=== PATIENT | male | born 1990 | race Caucasian/White ===

== ENCOUNTER 2024-09-10 12:18 | Outpatient (CLI) | payer BC, SELFPAY ==
--- NOTE | 2024-09-10 12:40 | ECG_ITS ---
Test Date: 2024-09-10 12:57:27 Measurements Intervals [place] Rate: 71 P: 36 CA: 145 QRS: 1 QRSD: 110 T: 14 QT: 384 QTc: 418 Interpretive Statements SINUS RHYTHM MODERATE VOLTAGE CRITERIA FOR LVH, CONSIDER NORMAL VARIANT [MEETS CRITERIA IN ONE OF: R(aVL), S(V1), R(V5), R(V5/V6)+S(V1)] WARNING: DATA QUALITY MAY AFFECT INTERPRETATION No previous ECG available for comparison Electronically Signed On 09-11-2024 15:20:46 LEAD SETTER by Shaunna Bowie M.D.
[2024-09-10 13:59] LABS: Anion Gap 4 mmol/L (4-12); Blood Urea Nitrogen 12 mg/dL (9-20); Calcium 9.2 mg/dL (8.4-10.2); Carbon Dioxide 28 mmol/L (22-30); Chloride 106 mmol/L (98-107); Estimated Glomerular Filt Rate > 60; Glucose 103 mg/dL (65-110); Potassium 4.3 mmol/L (3.4-5.0); Sodium 138 mmol/L (137-145)
[2024-09-10 14:15] LABS: Prothrombin Time 13.5 Seconds (11.1-14.7)
[2024-09-10 14:17] LABS: Partial Thromboplastin Time 29.1 Seconds (22.3-36.8)
== END 2024-09-10 12:19 | disposition home or self-care (01) ==
LOC: ANHSURGERY 12:26
PROVIDERS: Anesthesiology; Visit Provider Surgery
DX: Z01.818 Encounter for other preprocedural examination (principal); K42.0 Umbilical hernia with obstruction, without gangrene; E13.21 Other specified diabetes mellitus with diabetic nephropathy
CPT/HCPCS: 36415; 80048; 85610; 85730; 86850; 86900; 86901; 93005

== ENCOUNTER 2024-09-18 02:53 | Day surgery (SDC) | payer BC, SELFPAY ==
[2024-09-06 11:23] VITALS: BMI 42.1
--- NOTE | 2024-09-06 11:24 | PC.NURSE ---
Report to the Outpatient Waiting Room, entrance under the green pavilion located off [facility], at time _0730_ on date _[id number]_. Planned Procedure Time: _0930_.? Time changes happen often and if your time is changed the preop area will call you the afternoon before. - You and your visitor will be asked to self-screen and do not enter if you have any COVID symptoms. Please call surgeon if you need to reschedule. - A mask is optional within the hospital at this time. Patients may have clear liquids (water, carbonated beverages, clear teas, apple juice) until 3 hours prior to surgery with a maximum of 20 ounces. - No food from midnight until time of surgery and no smoking. This includes no chewing gum, candy or mints. Take only the following medications with a SIP of water on the morning of surgery: ___None DO NOT STOP ANY OF YOUR OTHER PRESCRIPTION MEDICATIONS PRIOR TO SURGERY EXCEPT THE FOLLOWING Medications to discontinue per physician ___None___ Please no make-up, nail thai, hairspray, perfume, deodorant, or body powder the day of surgery.? No jewelry (including any body piercings) or valuables the day of surgery, leave them at home.? Please take a shower or bath the night before, or the morning of, surgery with an antibacterial soap.? Wear comfortable, loose fitting clothing.? - Jewelry must be removed prior to entering the operating room.? Rings and piercings that are not removed may be cut off. - The hospital will not accept responsibility for valuables.? - Please leave all valuables, including medications, at home the day of surgery. If you are going home after surgery, a licensed power screwdriver operator must drive you home.? - NO public transportation without another adult if you receive anesthesia. - We recommend that an adult stay with you for 24 hours following discharge. - We also recommend that you do not drive, make important decision, drink alcoholic beverages, or take any drugs that were not prescribed by your health care provider for at least 24 hours after your discharge time. Follow any additional instructions given to you from your surgeon. Telephone instructions given to _Ryan__and asked if any additional questions and then verbalized understanding. Patient advised to call surgeon office or pre surgery nurse liaison [phone] if any additional questions.
[2024-09-18] VITALS (19 sets, daily range): BP systolic 110–159; BP diastolic 58–88; PULSE 70–92; RESP 12–36; TEMP 36.4–36.8; O2SAT 92–98
--- NOTE | 2024-09-18 07:43 | P.PNAN_ITS ---
Anes - Initial Pre Proc Eval Procedure: Operation Date: 09/18/24 09:30 Proposed Procedures p Laparoscopic Incarcerated Umbilical Hernia Repair with Mesh, Davinci Assisted - Dharmesh Woods DO Date/Time: 09/18/24 07:43 Surgeon: Dharmesh Woods DO Pre Op Diagnosis: Incarcerated Umb Hernia (4cm) Patient Data Age: 34 Gender: M Height: 1.83 m Weight: 140.9 kg Allergies Allergy/AdvReac Type Severity Reaction Status Date / Time No Known Allergies Allergy Mild Verified 09/06/24 11:13 Home Medications ?Medication ?Instructions ?Recorded ?Confirmed ?Type amlodipine 10 mg tablet 10 mg PO HS 09/06/24 09/18/24 History atorvastatin 20 mg tablet 20 mg PO QPM 09/06/24 09/18/24 History empagliflozin 10 mg tablet 10 mg PO HS 09/06/24 09/18/24 History (Jardiance) hydrochlorothiazide 12.5 mg capsule 12.5 mg PO HS 09/06/24 09/18/24 History losartan 100 mg tablet 100 mg PO HS 09/06/24 09/18/24 History metformin 1,000 mg tablet 1,000 mg PO HS 09/06/24 09/18/24 History Patient hx anesthesia problems: none Family hx anesthesia problems: none Results Review: All pre-operative results and documents have been reviewed as part of the pre- operative evaluation. [facility] Past Medical History Medical History (Updated 09/18/24 @ 07:44 by Jaden Paerson DO) SRIARM (obstructive sleep apnea) Type 2 diabetes mellitus Hypertension Surgical History Surgical History No pertinent past surgical history Family History Family History Mother Hypertension Social History Social History Smoking packs per day: 1 Smoking cigarettes per day: 20.0 Years smoked: 2 Smoking pack-years: 2.00 Smoking status: Former smoker Tobacco type: cigarettes Smoking end date: 09/06/19 Alcohol intake: current Alcohol use details: social Do You Feel Safe in your Home?: Yes Lack of Transportation: No Lack of Food: Never True Current Housing: I Have Housing Concerned About Future Housing: No Difficulty Paying Gas/Electric Bills: No Difficulty Paying for Meds: No Currently Unemployed: No Education: High School Diploma/GED Difficulty w/ Childcare or Family Care: No Living arrangements: with family Occupation/Education: occupation Additional occupation/education comments: [employer] Spiritual care concerns: No Anes - Eval Final PreProcedure Day of Procedure 09/18/24 07:43 Patient weight: morbidly obese Heart: regular rate and rhythm Lungs: clear to auscultation Airway: Mallampati scale class II Neurological: alert and oriented Last oral intake: >/= 8 hours ASA classification: III Emergent: no Anesthetic plan: proceed Anesthesia type and monitoring: general ETT and standard monitoring Results Review: All pre-operative results and documents have been reviewed as part of the pre- operative evaluation. Informed Consent: The patient's anesthetic plan and its attendant risks and benefits were discussed with the patient/family/POA. Questions were solicited and answers provided to the satisfaction of the patient/family/POA.
[2024-09-18] MEDS: LACTATED RINGERS 1,000 ML 30 ML IV CONT ×2 (08:00→12:14)
[2024-09-18 08:22] LABS: Glucose Point of Care 123 mg/dl (65-105)
[2024-09-18] MEDS: ACETAMINOPHEN 500 MG TABLET 1000 MG PO ×3 (08:30→23:32)
[2024-09-18] MEDS: KETOROLAC 15 MG/ML VIAL (*BKC) IV PUSH ×2 (08:30→14:55)
--- NOTE | 2024-09-18 09:36 | WPDHPUPDATE1 ---
History and Physical Update Update Date/Time: 09/18/24 09:36 History and Physical has been reviewed, including an updated exam of the patient. There are NO changes in the patient's condition. Risks, benefits, and alternatives have been discussed and questions answered. Patient agrees to proceed with procedure.
[2024-09-18] MEDS: ceFAZolin 3 GM/D5W 100 ML 100 ML IVPB (09:58)
[2024-09-18] MEDS: BUPIVACAINE/EPINEPHRINE 0.5% 30 ML VIAL INFILTRATE (10:37)
--- NOTE | 2024-09-18 12:16 | W.PM.PROC2 ---
Procedure Note - Detailed Date of Procedure 09/18/24 Pre-op Diagnosis Incarcerated Umbilical Hernia Post-op Diagnosis Same (4 cm incarcerated umbilical hernia) Procedure Performed Laparoscopic 4 cm incarcerated umbilical hernia repair with mesh, da Radha assisted Surgeon Dharmesh Woods, DO Anesthesia General and Local (0.5% bupivacaine with epinephrine) Indications This is a 34-year-old man who presented with an incarcerated umbilical hernia. He has had the hernia for a couple years and this does occasionally cause some discomfort. He was initially seen about 1 year ago and it was recommended that he lose weight before proceeding with surgery. He lost about 45 lb over the past year and his body mass index is now down below 45. He is starting to have more symptoms with the hernia and would like to proceed. Discussions were made with the patient about treatment options and decision was made to proceed with robotic assisted laparoscopic incarcerated umbilical hernia repair with mesh. Findings Robotic assisted laparoscopic 4 cm incarcerated umbilical hernia repair with mesh was performed. The patient was found to have an umbilical hernia incarcerated with omentum. The omentum was carefully reduced and the hernia defect was then measured. This was measuring about 4 cm wide. A robotic intraperitoneal onlay mesh technique was utilized for repair. The preperitoneal fat and hernia sac was excised to allow for mesh placement and fascial closure. I then chose a Ventralight ST 20 cm x 15 cm mesh to repair the hernia with. The hernia sac was removed and sent to the lab for pathology. Description of Procedure Procedure as well as risks, benefits, and alternatives were discussed with the patient. Written consent was obtained and placed in chart prior to procedure. Patient was brought back to surgical suite. He was placed supine on operating table. Time-out was done to confirm patient and procedure. He was then intubated by the anesthesia department. A bump was placed under his left hip, and the bed was flexed slightly to extend the space between his costal margin and iliac crest. His abdomen was prepped and draped in sterile fashion using chlorhexidine prep. A 5 millimeter incision was made in the left upper quadrant, and a 5 millimeter Optiview trocar was advanced through the abdominal layers under direct visualization. Once inside the abdominal cavity, carbon dioxide insufflation was used to create a pneumoperitoneum. His abdomen was inspected. An 8 millimeter incision was made in the left lower quadrant, and an 8 millimeter robotic trocar was placed under direct visualization. Another 8 millimeter incision was made in the left lateral abdomen, and an 8 millimeter robotic trocar was placed under direct visualization. 0.5% bupivacaine with epinephrine was infiltrated around each port site. The 5 millimeter port was removed, and an 8 mm robotic trocar was placed under direct visualization. The robotic arms were brought up to the patient's bedside and secured to the ports. The camera and instruments were inserted, and I then moved over to the robotic console and took control of the camera and instruments. After careful thorough inspection of the abdominal cavity, I began my dissection at the hernia. The incarcerated omentum was carefully reduced using blunt dissection and scissors with electrocautery. The preperitoneal fat and hernia sac were then excised using scissors with electrocautery. The falciform ligament was taken down for about 5 cm cephalad to allow for clear visualization of the abdominal wall. I then measured the hernia size. The hernia measured 4 cm. The fascia was closed using an 1-Stratafix running suture in a vertical fashion. A Ventralight ST 20 cm x 15 cm mesh was then placed within the abdominal cavity. This was oriented vertically with the mesh centered on the hernia defect. The mesh was then secured at the center and 4 corners using 3-0 Vicryl simple interrupted sutures and circumferentially to the abdominal wall using 2-0 Stratafix running absorbable suture. The repair was inspected, and one final inspection was made around the abdominal cavity. The hernia sac was placed in an Endo-Catch bag and removed through the right upper quadrant port. The fascia had to be dilated to extract this. I then closed this port site fascia using an 0 Vicryl suture passed with a Nakul-Pierre cone. The robotic instruments were then removed, and the robotic arms were disengaged from the trocars. The ports were then removed under direct visualization, the camera was removed, and the pneumoperitoneum was released. The skin of the incisions was then approximated using 4-0 Monocryl subcuticular suture. Exofin glue was then applied on top. The patient was then awakened from anesthesia, extubated, and transferred to recovery. Implants Ventralight ST 20 cm x 15 cm mesh Estimated Blood Loss 40 Pathology Yes (Umbilical hernia sac) Complications No immediate complications Condition Stable Disposition Same day [facility] Billing Surgery - Charge Forward: Surgery Billing
[2024-09-18] MEDS: fentaNYL CITRATE INJ (*CRX) 100 MCG/2 ML VIAL 25 MCG IV PUSH ×8 (13:11→13:25)
[2024-09-18 13:56] LABS: Glucose Point of Care 188 mg/dl (65-105)
[2024-09-18] MEDS: ONDANSETRON INJ 4 MG/2 ML VIAL IV PUSH (14:11)
[2024-09-18] MEDS: HYDROmorphone HCL INJ (*CRX) 1 MG/ML SYR IV PUSH (14:20)
[2024-09-18] MEDS: oxyCODONE HCL (*CRX) 5 MG TAB IR PO ×2 (14:28→21:52)
[2024-09-18] MEDS: diphenhydrAMINE HCl INJ 50 MG/ML VIAL 25 MG IV PUSH (15:26)
[2024-09-18 17:55] LABS: Glucose Point of Care 174 mg/dl (65-105)
[2024-09-18] MEDS: ATORVASTATIN 20 MG TABLET PO (18:50)
[2024-09-18] MEDS: IBUPROFEN 600 MG TABLET PO ×2 (18:50→23:32)
[2024-09-18] MEDS: LACTATED RINGERS 1,000 ML 100 ML IV CONT (18:51)
[2024-09-18 21:16] LABS: Glucose Point of Care 163 mg/dl (65-105)
[2024-09-18] MEDS: metFORMIN HCL 500 MG TABLET 1000 MG PO (21:53)
[2024-09-18] MEDS: LOSARTAN POTASSIUM 100 MG TABLET PO (21:53)
[2024-09-18] MEDS: amLODIPine BESYLATE 10 MG TABLET PO (21:53)
[2024-09-18] MEDS: EMPAGLIFLOZIN 10 MG TABLET PO (21:53)
[2024-09-19 00:45] VITALS: BP 123/80; PULSE 109; RESP 22; TEMP 36.7; O2SAT 94
[2024-09-19] MEDS: ACETAMINOPHEN 500 MG TABLET 1000 MG PO (05:08)
[2024-09-19] MEDS: IBUPROFEN 600 MG TABLET PO (05:08)
[2024-09-19 05:30] VITALS: BP 148/79; PULSE 103; RESP 20; TEMP 37.7; O2SAT 94
[2024-09-19 06:53] LABS: Hematocrit 41.3 % (42.0-52.0); Hemoglobin 14.6 g/dL (14.0-18.0); Mean Corpuscular HGB Conc 35.4 g/dl (32-36); Mean Corpuscular Hemoglobin 29.4 pg (26-34); Mean Corpuscular Volume 83.3 fl (80-100); Mean Platelet Volume 9.2 fl (7.4-10.4); Platelet Count Result 376 k/mm3 (150-375); Red Blood Count 4.96 M/mm3 (4.6-6.20); Red Cell Distribution Width 13.3 % (11.5-14.5); White Blood Count 13.4 K/mm3 (4.5-10.0)
[2024-09-19 07:05] LABS: Anion Gap 4 mmol/L (4-12); Blood Urea Nitrogen 15 mg/dL (9-20); Calcium 9.6 mg/dL (8.4-10.2); Carbon Dioxide 29 mmol/L (22-30); Chloride 104 mmol/L (98-107); Estimated CRCL calculation 149 ml/min; Estimated Glomerular Filt Rate > 60; Glucose 132 mg/dL (65-110); Potassium 3.9 mmol/L (3.4-5.0); Sodium 137 mmol/L (137-145)
[2024-09-19 08:01] VITALS: BP 138/64; PULSE 102; RESP 18; TEMP 36.6; O2SAT 100
[2024-09-19] MEDS: oxyCODONE HCL (*CRX) 5 MG TAB IR PO (08:25)
== END 2024-09-19 09:00 | disposition home or self-care (01) ==
LOC: ANHSURGERY 12:15 → ANH3MEDSUR 18:17
PROVIDERS: Visit Provider Surgery
PROC: (CPT 49594; principal; 2024-09-18 09:30)
DX: K42.0 Umbilical hernia with obstruction, without gangrene (principal); I10 Essential (primary) hypertension; E11.9 Type 2 diabetes mellitus without complications; G47.33 Obstructive sleep apnea (adult) (pediatric); E66.01 Morbid (severe) obesity due to excess calories; Z68.41 Body mass index [BMI] 40.0-44.9, adult; Z79.84 Long term (current) use of oral hypoglycemic drugs; Z87.891 Personal history of nicotine dependence
CPT/HCPCS: 49594; S2900; 36415; 80048; 82948; 85027; 88302; A9270; C1781; J0330; J0690; J1100; J1171; J1200; J1885; J2003; J2250; J2405; J2704; J3010; J7030; J7120